=== PATIENT | female | born 1950 | race Hispanic/Latino ===

== ENCOUNTER 2017-11-25 05:57 | Inpatient (IN) | payer BC, MEDICARE ==
[2017-11-15 13:09] VITALS: BMI 39.9
[2017-11-25 06:45] LABS: HEMOGLOBIN 13.7 g/dL (12.0-16.0); MEAN CELL VOLUME 92.5 fl (81.0-99.0); MEAN CORPUSCULAR HEMOGLOBIN 31.4 pg (27.0-31.0); RBC 4.37 Mil/uL (3.80-5.20); RED CELL DISTRIBUTION WIDTH 14.7 % (11.5-14.5); WHITE BLOOD COUNT 6.8 K/uL (4.8-10.8)
--- NOTE | 2017-11-25 07:01 | CP.PCM.HP ---
History of Present Illness - History of Present Illness History of Present Illness: PMD: Aleksander Pereyra MD Chief Complaint: Left knee pain The patient was seen and examined on SDS HPI: This is a 67 years old female with hx of GERD, HTN and osteoarthritis. She has failed conservative treatment for the osteoarthritis of the left knee and has decided to undergo surgical intervention of Left total knee replacement. She refers painful left knee, no nausea, vomits, chest pain, SOB nor Diarrhea. PMH: GERD; HTN; HLD; Osteoarthritis of Left and right Knee; Gastritis PSH: Tonsillectomy; Adenoidectomy SH; Former Smoker; No illegfal drug use; No Alcohol use; Live with her family FH: States: No known family Hx Allergies: Sulfa causes Rash Medications: Reviewed Present on Admission - Present on Admission Any Indicators Present on Admission: No History of DVT/PE: No History of Uncontrolled Diabetes: No Urinary Catheter: No Decubitus Ulcer Present: No Review of Systems - Constitutional Constitutional: absent: Fever, Headache, Lethargy - EENT Eyes: Requires Corrective Lenses. absent: Blurred Vision, Diplopia, Floaters Ears: absent: Decreased Hearing, Tinnitus Nose/Mouth/Throat: absent: Epistaxis, Nasal Congestion, Sinus Pain, Sinus Pressure - Cardiovascular Cardiovascular: Edema. absent: Chest Pain, Dyspnea - Respiratory Respiratory: absent: Cough, Dyspnea, Wheezing, Stridor - Gastrointestinal Gastrointestinal: absent: Abdominal Pain, Constipation, Diarrhea, Nausea, Vomiting - Genitourinary Genitourinary: absent: Dysuria, Flank Pain, Urinary Frequency - Musculoskeletal Musculoskeletal: Arthralgias. absent: Back Pain, Myalgias - Integumentary Integumentary: absent: Rash, Skin Ulcer, Sores, Striae - Neurological Neurological: absent: Confusion, Focal Weakness, Headaches - Psychiatric Psychiatric: absent: Anxiety, Depression, Panic Attacks - Endocrine Endocrine: absent: Palpitations, Polydipsia, Polyphagia, Polyuria - Hematologic/Lymphatic Hematologic: absent: Easy Bleeding, Easy Bruising Past Patient History - Past Medical History & Family History Past Medical History?: Yes - Past Social History Smoking Status: Former Smoker Chewing Tobacco Use: No Cigar Use: No Alcohol: None Drugs: Denies Home Situation {Lives}: With Family - CARDIAC Hx Cardiac Disorders: Yes Hx Hypertension: Yes - PULMONARY Hx Respiratory Disorders: Yes Hx Bronchitis: Yes - NEUROLOGICAL Hx Neurological Disorder: No - HEENT Hx HEENT Problems: Yes Hx Cataracts: Yes - RENAL Hx Chronic Kidney Disease: No - ENDOCRINE/METABOLIC Hx Endocrine Disorders: No - HEMATOLOGICAL/ONCOLOGICAL Hx Blood Disorders: No - INTEGUMENTARY Hx Dermatological Problems: No - MUSCULOSKELETAL/RHEUMATOLOGICAL Hx Musculoskeletal Disorders: Yes Hx Arthritis: Yes (hands,neck,knees) - GASTROINTESTINAL Hx Gastrointestinal Disorders: Yes Hx Gastritis: Yes - GENITOURINARY/GYNECOLOGICAL Hx Genitourinary Disorders: No - PSYCHIATRIC Hx Psychophysiologic Disorder: No - SURGICAL HISTORY Hx Surgeries: Yes Hx Tonsillectomy: Yes (1957) - ANESTHESIA Hx Anesthesia: Yes Hx Anesthesia Reactions: No Has any member of the family had a problem w/ anesthesia?: No Meds Allergies/Adverse Reactions: Allergies Allergy/AdvReac Type Severity Reaction Status Date / Time Sulfa (Sulfonamide Allergy RASH Verified 11/15/17 13:09 Antibiotics) Physical Exam - Constitutional Appears: No Acute Distress - Head Exam Head Exam: ATRAUMATIC, NORMAL INSPECTION, NORMOCEPHALIC - Eye Exam Eye Exam: EOMI, Normal appearance Pupil Exam: NORMAL ACCOMODATION, PERRL - ENT Exam ENT Exam: Mucous Membranes Moist, Normal Exam - Neck Exam Neck exam: Positive for: Full Rom, Normal Inspection. Negative for: Lymphadenopathy, Tenderness - Respiratory Exam Respiratory Exam: Clear to Auscultation Bilateral. absent: Rales, Rhonchi, Wheezes - Cardiovascular Exam Cardiovascular Exam: REGULAR RHYTHM, RRR, +S1, +S2 - GI/Abdominal Exam GI & Abdominal Exam: Normal Bowel Sounds, Soft. absent: Mass, Organomegaly, Tenderness - Rectal Exam Rectal Exam: Deferred - Extremities Exam Additional comments: Non pitting bilateral lower extremity edema - Back Exam Back exam: NORMAL INSPECTION. absent: CVA tenderness (L), CVA tenderness (R) - Neurological Exam Neurological exam: Alert, CN II-XII Intact, Oriented x3, Reflexes Normal - Psychiatric Exam Psychiatric exam: Normal Affect, Normal Mood - Skin Skin Exam: Dry, Intact, Normal Color, Warm Results - Vital Signs Recent Vital Signs: Last Vital Signs Temp 98.5 F 11/25/17 06:41 Pulse 92 H 11/25/17 06:44 Resp 20 11/25/17 06:41 BP 144/74 11/25/17 06:41 Pulse Ox 96 11/25/17 06:41 - Labs Result Diagrams: 11/25/17 06:30 Assessment & Plan - Assessment and Plan (Free Text) Assessment: #.Osteoarthritis #. GERD #. HTN #. HLD Plan: 67 years old female with hx of GERD, HTN and osteoarthritis. She has failed conservative treatment for the osteoarthritis of the left knee and has decided to undergo surgical intervention of Left total knee replacement. She refers painful left knee, no nausea, vomits, chest pain, SOB nor Diarrhea. #. Osteoarthritis of left Knee for Left total Knee replacement - NPO - consult Dr Hughes Orthopedist - Orthopedic management - Pain Management - OT/PT #. GERD - Omeprazole #. HTN - Olmesartan #. HLD - Welchol #. Edema to lower extremities probably secondary to venous insufficiency - Continue Lasix #. DVT prophylaxis with Lovenox to start from 11/26/17 #. Code Status: Full - Date & Time Date: 11/25/17 Time: 07:01
[2017-11-25] MEDS ORDERED: Rocuronium 10 mg/ml (5 ml) ONE (07:21)
[2017-11-25] MEDS ORDERED: Succinylcholine 200 mg/10 ml Inj IV ONE (07:21)
[2017-11-25] MEDS ORDERED: Propofol 10 mg/ml Inj (20 ML) ONE (07:21)
[2017-11-25] MEDS ORDERED: Ropivacaine 0.5% 30ML IV ONE ×2 (07:31→07:58)
[2017-11-25] MEDS ORDERED: Tranexamic Acid 1,000 MG in Sodium Chloride 0.9% 100 ML IVPB ONE ×2 (07:32→07:45)
--- NOTE | 2017-11-25 07:33 | CP.PCM.CON ---
History of Present Illness - History of Present Illness History of Present Illness: Orthopedic consultation Dr. Hughes 67F complains of left knee pain with osteoarthritis failed conservative mgmt and elected for TKR. PMH: HTN, chol, weather induced asthma sx All: sulfa No dysuria, frequency, just finished course of levaquin No hx of bleeding/clotting disorder, seizures, stents, CAD, TIA Review of Systems - Review of Systems All systems: reviewed and no additional remarkable complaints except - Musculoskeletal Musculoskeletal: As Per HPI Past Patient History - Past Medical History & Family History Past Medical History?: Yes Past Family History: Reviewed and not pertinent - Past Social History Smoking Status: Former Smoker - CARDIAC Hx Cardiac Disorders: Yes Hx Hypercholesterolemia: Yes Hx Hypertension: Yes - PULMONARY Hx Respiratory Disorders: Yes Hx Asthma: Yes (sometimes/due to weather) Hx Bronchitis: Yes (due to weather) - NEUROLOGICAL Hx Neurological Disorder: No - HEENT Hx HEENT Problems: Yes Hx Cataracts: Yes - RENAL Hx Chronic Kidney Disease: No - ENDOCRINE/METABOLIC Hx Endocrine Disorders: No - HEMATOLOGICAL/ONCOLOGICAL Hx Blood Disorders: No - INTEGUMENTARY Hx Dermatological Problems: No - MUSCULOSKELETAL/RHEUMATOLOGICAL Hx Musculoskeletal Disorders: Yes Hx Arthritis: Yes (hands,neck,knees) - GASTROINTESTINAL Hx Gastrointestinal Disorders: Yes Hx Gastritis: Yes - GENITOURINARY/GYNECOLOGICAL Hx Genitourinary Disorders: No - PSYCHIATRIC Hx Psychophysiologic Disorder: No - SURGICAL HISTORY Hx Surgeries: Yes Hx Tonsillectomy: Yes (1957) - ANESTHESIA Hx Anesthesia: Yes Hx Anesthesia Reactions: No Has any member of the family had a problem w/ anesthesia?: No Meds Allergies/Adverse Reactions: Allergies Allergy/AdvReac Type Severity Reaction Status Date / Time Sulfa (Sulfonamide Allergy RASH Verified 11/15/17 13:09 Antibiotics) Physical Exam - Constitutional Appears: Well, No Acute Distress - Respiratory Exam Respiratory Exam: NORMAL BREATHING PATTERN - Cardiovascular Exam Additional comments: +dp/pT PULSES - Expanded Lower Extremities Exam Left Knee exam: tenderness (skin intact, calves soft NT neg homans, +DP/PT pulses) - Neurological Exam Neurological exam: Alert, Oriented x3 - Psychiatric Exam Psychiatric exam: Normal Affect, Normal Mood - Skin Skin Exam: Dry, Intact, Normal Color, Warm Results - Vital Signs Recent Vital Signs: Last Vital Signs Temp 98.5 F 11/25/17 06:41 Pulse 92 H 11/25/17 06:44 Resp 20 11/25/17 06:41 BP 144/74 11/25/17 06:41 Pulse Ox 96 11/25/17 06:41 - Labs Result Diagrams: 11/25/17 06:30 Labs: Laboratory Results - last 24 hr 11/25/17 06:30 WBC 6.8 RBC 4.37 Hgb 13.7 Hct 40.4 MCV 92.5 MCH 31.4 H MCHC 34.0 RDW 14.7 H Plt Count 263 Assessment & Plan (1) Primary osteoarthritis of left knee Assessment and Plan: NPO for TKR T&S risks/ralph/alt of TKR explained to patient who verbalized understanding and consented to procedure d/w DR. Hughes, agrees with above Status: Acute (2) Hypertension Assessment and Plan: cont home meds Status: Chronic (3) Hypercholesteremia Status: Chronic
[2017-11-25] MEDS ORDERED: Calcium Chloride 1000 mg/10 ml Syringe IV ONE ×2 (08:05→08:06)
[2017-11-25] MEDS ORDERED: Etomidate 20 mg/10ml Inj IV ONE (08:11)
[2017-11-25] MEDS ORDERED: Lactated Ringer's 1,000 ML IV ONE ×2 (08:15→08:40)
[2017-11-25] MEDS ORDERED: Bacitracin Ointment 30 GM TUBE ONE (08:17)
[2017-11-25] MEDS ORDERED: Absorbable Gelatin Sponge Size 12-7 ONE (08:17)
[2017-11-25] MEDS ORDERED: Thrombin Topical 5,000 Int Units Spray Kit ONE (08:18)
[2017-11-25] MEDS ORDERED: Dexamethasone 4 mg/1 ml ONE (09:49)
[2017-11-25] MEDS ORDERED: Desflurane Inhalation Anesthetic Liq (240 ml) ONE (10:43)
[2017-11-25] MEDS ORDERED: DiphenhydrAMINE 50 mg/ml Inj IVP PRN (12:40)
[2017-11-25] MEDS ORDERED: HYDROmorphone 0.5 mg/0.5 ml ISec IVP PRN (12:40)
[2017-11-25] MEDS ORDERED: oxyCODONE 10 mg Immediate Release Tab PO PRN (12:41)
--- NOTE | 2017-11-25 12:44 | PCM.ANESB3 ---
Femoral Nerve Block - Femoral Nerve Block Date of Procedure: 11/25/17 Anesthesiologist: Eros Gann Pre-Procedure Diagnosis: L total knee replacement Post-Procedure Diagnosis: L total knee replacement Procedure Performed: Femoral Nerve Block Left - Procedure Femoral Nerve Block: The procedure was explained to the patient that it is for the post-operative pain management. Consent was obtained after a thorough discussion with the patient regarding the benefits and possible complications of local anesthetic block of the femoral nerve at the inguinal crease area. The patient was brought to the operating room and standard monitors were applied. Time-out was held with the circulating nurse to confirm the correct surgery and the appropriate block. After completion of the surgical procedure under general anesthesia, patient was placed in supine position with fully extended lower extremities and the left groin exposed. The femoral artery was then carefully palpated. The ultrasound transducer was then applied to this area in the transverse plane and the femoral nerve was visualized lateral to the femoral artery and underneath the fascia iliaca. After thorough identification, the inguinal crease area was prepped with Chlorhexidine. At this point, a #22 gauge Stimuplex 2-inch needle was inserted immediately lateral to the femoral artery pulse at the inguinal crease and advanced perpendicularly. The needle was inserted to the ultrasound transducer in-plane towards the femoral nerve in a [id number] direction. Needle advancement was performed carefully under direct ultrasound visualization. After negative aspiration, 30cc of 0.5% Ropivacaine was injected in 5cc increments. Under ultrasound guidance the local anesthetics were observed spreading below fascia iliaca and around the femoral nerve. The needle was removed intact and sterile dressing was applied. The patient had stable vital signs, was conscious and in no apparent distress. The patient tolerated the femoral nerve block well with stable vital signs and was prepared for subsequent surgery.
[2017-11-25] MEDS ORDERED: Lactated Ringer's 1,000 ML IV SCH ×2 (12:45)
--- NOTE | 2017-11-25 13:33 | RAD ---
Date of service: 11/25/2017 PROCEDURE: Left Knee Radiographs. HISTORY: Pain. COMPARISON: None. FINDINGS: BONES: Patient is status post left knee arthroplasty with distal femoral and proximal tibial prosthetic components in good apparent position grossly. Postop changes seen at the left knee with skin barbi noted anteriorly. No destructive bony lesion identified. No fracture or dislocation identified. No subluxation or dislocation. JOINTS: As above. JOINT EFFUSION: As above. OTHER FINDINGS: None. IMPRESSION: Status post left knee arthroplasty as discussed above.
--- NOTE | 2017-11-25 13:54 | PCM.SURG1 ---
Surgeon's Initial Post Op Note - Surgeon's Notes Surgeon: [employer] Technologist: RICHARD Roman Type of Anesthesia: General Endo, Spinal Anesthesia Administered By: Dr Sanjuanita Jr Pre-Operative Diagnosis: Severe tricompartmental O/A L Knee/. morbid obesity. valgus defomity Operative Findings: Severe tricompartnetal O/A L knee. lateral contracture ( knee). severe synovitis anterior and posterior compartments Post-Operative Diagnosis: as above. posterior capsular contracture. lateral patella retinacular contracture/lateral contracture Operation Performed: L TKR. posterior capsular release. lateral patella release/release popliteus tendon/iliotibial band. anterior and posterior synovectomy. computer navigation Specimen/Specimens Removed: synvoium/cartilage/bone Estimated Blood Loss: EBL {In ML}: 75 Blood Products Given: N/A Drains Used: No Drains Post-Op Condition: Fair Date of Surgery/Procedure: 11/25/17 Time of Surgery/Procedure: 09:45 (time in room [email or web address] indcution time- 830)
--- NOTE | 2017-11-25 17:08 | CP.PCM.CON ---
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 SHE DENIES ANY KNOWN SERIOUS CARDIAC PROBLEMS AND DENIES CHEST PAIN OR SOB. SHE DOES HAVE SINGLE PVCS THAT HER FOUND ON EKGS. SHE HAD AN ECHOCARDIOGRAM THAT SHOWED A LVEF OF 40%. Past Patient History - Past Medical History & Family History Past Medical History?: Yes Past Family History: Reviewed and not pertinent - Past Social History Smoking Status: Former Smoker - CARDIAC Hx Cardiac Disorders: Yes Hx Hypercholesterolemia: Yes Hx Hypertension: Yes - PULMONARY Hx Respiratory Disorders: Yes Hx Asthma: Yes (sometimes/due to weather) Hx Bronchitis: Yes (due to weather) - NEUROLOGICAL Hx Neurological Disorder: No - HEENT Hx HEENT Problems: Yes Hx Cataracts: Yes - RENAL Hx Chronic Kidney Disease: No - ENDOCRINE/METABOLIC Hx Endocrine Disorders: No - HEMATOLOGICAL/ONCOLOGICAL Hx Blood Disorders: No - INTEGUMENTARY Hx Dermatological Problems: No - MUSCULOSKELETAL/RHEUMATOLOGICAL Hx Musculoskeletal Disorders: Yes Hx Arthritis: Yes (hands,neck,knees) - GASTROINTESTINAL Hx Gastrointestinal Disorders: Yes Hx Gastritis: Yes - GENITOURINARY/GYNECOLOGICAL Hx Genitourinary Disorders: No - PSYCHIATRIC Hx Psychophysiologic Disorder: No - SURGICAL HISTORY Hx Surgeries: Yes Hx Tonsillectomy: Yes (1957) - ANESTHESIA Hx Anesthesia: Yes Hx Anesthesia Reactions: No Has any member of the family had a problem w/ anesthesia?: No Meds Allergies/Adverse Reactions: Allergies Allergy/AdvReac Type Severity Reaction Status Date / Time Sulfa (Sulfonamide Allergy RASH Verified 11/15/17 13:09 Antibiotics) - Medications Medications: Current Medications Acetaminophen (Tylenol 325mg Tab) 975 mg PO Q6 HERB Enoxaparin Sodium (Lovenox) 40 mg SC DAILY HERB PRN Reason: Protocol Ferrous Sulfate (Feosol) 325 mg PO BID HERB Folic Acid (Folic Acid) 1 mg PO DAILY [facility] Furosemide (Lasix) 40 mg PO DAILY [facility] Lactated Ringer's (Lactated Ringer's) 1,000 mls @ 150 mls/hr IV .Q6H40M HERB Cefazolin Sodium/Dextrose (Ancef Iv 2 Gm Duplex) 2 gm in 50 mls @ 50 mls/hr IVPB Q8 HERB PRN Reason: Protocol Lactated Ringer's (Lactated Ringer's) 1,000 mls @ 80 mls/hr IV .[id number] [facility] Losartan Potassium (Cozaar) 50 mg PO DAILY [facility] Meperidine HCl (Demerol) 12.5 mg IVP Q5M PRN PRN Reason: Shivering/Rigor Morphine Sulfate (Morphine) 2 mg IVP Q4 PRN PRN Reason: Pain, severe (8-10) Ondansetron HCl (Zofran Inj) 4 mg IVP ONCE PRN PRN Reason: Nausea/Vomiting Oxycodone HCl (Oxycodone Immediate Release Tab) 10 mg PO Q6 PRN PRN Reason: Pain, moderate (4-7) Senna/Docusate Sodium (Senokot S 50 Mg-8.6 Mg) 2 tab PO HS [facility] Spironolactone (Aldactone) 25 mg PO BID [facility] Physical Exam - Respiratory Exam Respiratory Exam: Clear to Auscultation Bilateral - Cardiovascular Exam Cardiovascular Exam: REGULAR RHYTHM, +S1, +S2 - Extremities Exam Additional comments: LLE IN AN IMMOBILIZER RLE WITHOUT EDEMA OR CALF PAIN - Additional Findings Additional findings: EKG NSR Results - Vital Signs Recent Vital Signs: Last Vital Signs Temp 98.2 F 11/25/17 15:00 Pulse 94 H 11/25/17 15:00 Resp 20 11/25/17 15:00 BP 138/82 11/25/17 15:00 Pulse Ox 93 L 11/25/17 14:45 - Labs Result Diagrams: 11/25/17 06:30 Labs: Laboratory Results - last 24 hr 11/25/17 11/25/17 06:30 06:30 WBC 6.8 RBC 4.37 Hgb 13.7 Hct 40.4 MCV 92.5 MCH 31.4 H MCHC 34.0 RDW 14.7 H Plt Count 263 Blood Type A NEGATIVE Antibody Screen Negative Crossmatch See Detail BBK History Checked No verified bt Assessment & Plan - Assessment and Plan (Free Text) Assessment: S/P LEFT TKR FOR SEVERE OA HYPERTENSION SINGLE PVCS ON EKG(BENIGN) Plan: CONTINUE ALDACTONE, LOSARTAN, FUROSEMIDE AND LOVENOX
[2017-11-25] MEDS: ceFAZolin IV 2 gm in Dextrose 2 GM/50 ML BAG IVPB SCH (17:13)
[2017-11-25] MEDS: Docusate-Senna 50 mg-8.6 mg Tab PO SCH (21:07)
--- NOTE | 2017-11-25 23:17 | OP ---
Copied To: Chris Hughes MD Attending MD: Chris Hughes MD PROCEDURE DATE: 11/25/2017 PREOPERATIVE DIAGNOSES: 1. Severe tricompartmental osteoarthritis of the left knee. 2. Anterior and posterior synovitis. 3. Valgus deformity. POSTOPERATIVE DIAGNOSES: 1. Severe tricompartmental osteoarthritis of the left knee. 2. Anterior and posterior compartment synovitis. 3. 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 PROCEDURES: 1. Left total knee replacement arthroplasty. 2. Posterior capsular release. 3. Anterior and posterior synovectomy. 4. Lateral patellar retinacular release and release of lateral corner. 5. Computer navigation. SURGEON: Chris Hughes MD LANDSCAPE CONTRACTOR: Dionna Ca, certified registered nursing events assistant. SECOND ROUND UP RING HAND: Tico Peres. COMPLICATIONS: No complications. DRAINS: No drains. ANESTHESIA: General and regional anesthesia. ANESTHESIOLOGIST: Brian Gann MD OPERATIVE INDICATION: Talia Pereyra is a 67-year-old woman who presents with severe pain and restricted range of motion of the left knee. The patient has failed conservative management including intraarticular injection, activity modification, and therapy. Pros, cons, risks and benefits of surgical approach were discussed. The possibility of mechanical failure, infection, thromboembolic disease, secondary or tertiary surgery was discussed. The patient no longer stand the discomfort. OPERATIVE PROCEDURE: After having obtained informed consent, after having identified side, site and procedure and critical pause/time-out, after the satisfactory induction of the anesthetic, the patient identified as Talia Pereyra in the supine position with all bony prominences well padded, the left lower extremity was prepped and free draped in the usual fashion for extremity surgery. The tourniquet which had been applied after sterilely prepping and draping, after having obtained informed consent, after the satisfactory induction of the anesthesia, the left lower extremity was prepped and free draped in the usual fashion for lower extremity surgery. After exsanguinating the limb using a 6-inch Esmarch bandage, tourniquet which had been applied was inflated to 350 mmHg. After sterilely prepping and draping, approximately an 8-inch straight midline approach was made to the knee. The skin incision was carried down through the skin and subcutaneous tissue. Hemostasis controlled with the Aquamantys. A medial arthrotomy was accomplished. The patella was everted. The knee was flexed. The tibia was dislocated anteriorly, and the initial osteotomy of the arthroplasty was accomplished on the tibial side. The patient has a marked valgus deformity. At this point in time, a lateral patellar retinacular release was accomplished as well as a lateral release including the popliteus tendon. The tibia was dislocated anteriorly, and the initial osteotomy of the arthroplasty was accomplished on the tibial side. At this point in time, computer navigation was employed. The accelerometer technique was employed. This having been accomplished, the anterior tibial strut was placed on the anterior aspect of the tibia. At this point in time, the accelerometer was placed as was the sensor, and registration of the medial malleolus was carried out as well as the lateral malleolus. The offset was identified and defined and registration having been accomplished, registration having been registered, varus-valgus was set to 0 degrees and 3.5 degrees posterior slope at a point approximately 8 mm below the more deficient side. The tibial osteotomy was accomplished. The iliotibial band was released. Lateral structures were released. A lateral patellar retinacular release was accomplished. The tibial osteotomy having been accomplished, attention was turned to the femur. Notch osteophytes and border osteophytes were debrided and this having been accomplished, notch osteophytes and border osteophytes having been debrided. The guide pin was placed in the superior aspect of the intercondylar notch. This having been accomplished, the distal cutting guide was affixed. Verification of position was accomplished. Sensor was applied as well as the accelerometer. Hip center was registered and the distal femoral cut was set to 0 degrees varus-valgus and 0.5 degrees of flexion. This having been accomplished, the cut was set to 9 mm distally. The distal cut having been accomplished, anterior-posterior sizing was accomplished to a #5 femoral component. A #5 block was applied. Anterior and posterior osteotomies were accomplished as well as chamfer cuts. This having been accomplished, the flexion-extension gap was measured and found to be equal. Posterior capsule was released because of the posterior capsular contracture using the electrocautery. This having been accomplished, the femoral trial was placed. The lugs were drilled. The tibia was dislocated anteriorly. At this point in time, the proximal tibia was prepared, guided to rotation of the lateral aspect of the tibial condyle, mid malleolar axis and medial third of the tibial tuberosity. This having been accomplished, the proximal tibia having been prepared with a stem extension, the tibial plate was applied with a 20-mm polyethylene. The flexion/extension was found to be excellent and stable. Overall alignment was excellent. The patella was exposed. Patella girth was found to be approximately 28 mm. Freehand patella osteotomy was accomplished, and the patella was reamed for #2 patellar component. The chamfer guide was placed after the trial had been removed, and the chamfer to the distal femur was accomplished. This having been accomplished, trialling having been accomplished and flexion/extension gap having been found to be equal and balanced, the patella balance having been equal, the femur, tibia and patella were prepared. The #5 cemented femoral component, #4 cemented tibial tray, #2 patella were cemented. Flexion/extension gap was found to be excellent. The tourniquet was deflated. Hemostasis was controlled with the Aquamantys. Closure was in layers, #2 FiberWire followed by #1 Vicryl, #2 Quill, 2-0 Vicryl, and barbi for skin. A Rajan Macdonald compression dressing and knee immobilizers were applied. Postoperative x-rays reveal excellent position of the construct. Chris Hughes MD
[2017-11-26] MEDS: ceFAZolin IV 2 gm in Dextrose 2 GM/50 ML BAG IVPB SCH ×2 (00:20→09:40)
[2017-11-26 06:27] LABS: HEMOGLOBIN 11.3 g/dL (12.0-16.0); MEAN CELL VOLUME 92.6 fl (81.0-99.0); MEAN CORPUSCULAR HEMOGLOBIN 31.2 pg (27.0-31.0); MEAN CORPUSCULAR HGB CONC 33.7 g/dL (33.0-37.0); RBC 3.62 Mil/uL (3.80-5.20); RED CELL DISTRIBUTION WIDTH 14.5 % (11.5-14.5); WHITE BLOOD COUNT 9.4 K/uL (4.8-10.8)
[2017-11-26 06:33] LABS: BLOOD UREA NITROGEN 14 mg/dl (7-17); CALCIUM 8.8 mg/dL (8.4-10.2); GFR AFRICAN-AMERICAN > 60; GFR NON-AFRICAN AMERICAN > 60
--- NOTE | 2017-11-26 08:13 | CP.PCM.PN ---
Subjective - Date & Time of Evaluation Date of Evaluation: 11/26/17 Time of Evaluation: 07:20 - Subjective Subjective: Patient seen and examined at bedside comfortable. No complaints of pain this AM. Eager to get OOB with PT. No acute events overnight. Denies CP/SOB/ dizziness. Objective - Vital Signs/Intake and Output Vital Signs (last 24 hours): Temp Pulse Resp BP Pulse Ox 98.4 F 92 H 18 119/75 96 11/26/17 03:45 11/26/17 03:45 11/26/17 03:45 11/26/17 03:45 11/26/17 03:45 - Medications Medications: Current Medications Acetaminophen (Tylenol 325mg Tab) 975 mg PO Q6 [facility] Last Admin: 11/25/17 21:06 Dose: 975 mg Enoxaparin Sodium (Lovenox) 40 mg SC DAILY [facility] PRN Reason: Protocol Ferrous Sulfate (Feosol) 325 mg PO BID [facility] Last Admin: 11/25/17 17:11 Dose: Not Given Folic Acid (Folic Acid) 1 mg PO DAILY [facility] Furosemide (Lasix) 40 mg PO DAILY [facility] Lactated Ringer's (Lactated Ringer's) 1,000 mls @ 150 mls/hr IV .Q6H40M [facility] Cefazolin Sodium/Dextrose (Ancef Iv 2 Gm Duplex) 2 gm in 50 mls @ 50 mls/hr IVPB Q8 [facility] PRN Reason: Protocol Last Admin: 11/26/17 00:20 Dose: 50 mls/hr Lactated Ringer's (Lactated Ringer's) 1,000 mls @ 80 mls/hr IV .[id number] [facility] Losartan Potassium (Cozaar) 50 mg PO DAILY [facility] Meperidine HCl (Demerol) 12.5 mg IVP Q5M PRN PRN Reason: Shivering/Rigor Morphine Sulfate (Morphine) 2 mg IVP Q4 PRN PRN Reason: Pain, severe (8-10) Ondansetron HCl (Zofran Inj) 4 mg IVP ONCE PRN PRN Reason: Nausea/Vomiting Oxycodone HCl (Oxycodone Immediate Release Tab) 10 mg PO Q6 PRN PRN Reason: Pain, moderate (4-7) Senna/Docusate Sodium (Senokot S 50 Mg-8.6 Mg) 2 tab PO HS [facility] Last Admin: 11/25/17 21:07 Dose: Not Given Spironolactone (Aldactone) 25 mg PO BID [facility] Last Admin: 11/25/17 17:10 Dose: 25 mg - Labs Labs: 11/26/17 05:25 11/26/17 05:25 - Extremities Exam Additional comments: L knee: Dressings CDI, Knee imm intact sensation intact SP/DP/TN motor intact EHL/FHL/TA/G pedal pulses intact comps soft NT Assessment and Plan (1) Primary osteoarthritis of left knee Assessment & Plan: POD #1 s/p L TKA doing very well -PT/OT FWB -knee imm only a night while in bed -CPM as per order -complete postop abx dosage -DVT ppx -hep lock -dsicharge planning to home tomorrow -above d/w Dr. Hughes in agreement Status: Acute
--- NOTE | 2017-11-26 09:09 | CP.PCM.PN ---
Subjective - Date & Time of Evaluation Date of Evaluation: 11/26/17 Time of Evaluation: 08:00 - Subjective Subjective: NO COMPLAINTS EXCEPT FOR SURGICAL SITE PAIN Objective - Vital Signs/Intake and Output Vital Signs (last 24 hours): Temp Pulse Resp BP Pulse Ox 98.1 F 76 20 118/72 95 11/26/17 08:12 11/26/17 08:12 11/26/17 08:12 11/26/17 08:12 11/26/17 08:12 - Medications Medications: Current Medications Acetaminophen (Tylenol 325mg Tab) 975 mg PO Q6 [facility] Last Admin: 11/25/17 21:06 Dose: 975 mg Enoxaparin Sodium (Lovenox) 40 mg SC DAILY [facility] PRN Reason: Protocol Ferrous Sulfate (Feosol) 325 mg PO BID [facility] Last Admin: 11/25/17 17:11 Dose: Not Given Folic Acid (Folic Acid) 1 mg PO DAILY [facility] Furosemide (Lasix) 40 mg PO DAILY [facility] Lactated Ringer's (Lactated Ringer's) 1,000 mls @ 150 mls/hr IV .Q6H40M [facility] Cefazolin Sodium/Dextrose (Ancef Iv 2 Gm Duplex) 2 gm in 50 mls @ 50 mls/hr IVPB Q8 [facility] PRN Reason: Protocol Last Admin: 11/26/17 00:20 Dose: 50 mls/hr Lactated Ringer's (Lactated Ringer's) 1,000 mls @ 80 mls/hr IV .[id number] [facility] Losartan Potassium (Cozaar) 50 mg PO DAILY [facility] Meperidine HCl (Demerol) 12.5 mg IVP Q5M PRN PRN Reason: Shivering/Rigor Morphine Sulfate (Morphine) 2 mg IVP Q4 PRN PRN Reason: Pain, severe (8-10) Ondansetron HCl (Zofran Inj) 4 mg IVP ONCE PRN PRN Reason: Nausea/Vomiting Oxycodone HCl (Oxycodone Immediate Release Tab) 10 mg PO Q6 PRN PRN Reason: Pain, moderate (4-7) Senna/Docusate Sodium (Senokot S 50 Mg-8.6 Mg) 2 tab PO HS [facility] Last Admin: 11/25/17 21:07 Dose: Not Given Spironolactone (Aldactone) 25 mg PO BID [facility] Last Admin: 11/25/17 17:10 Dose: 25 mg - Labs Labs: 11/26/17 05:25 11/26/17 05:25 - Respiratory Exam Respiratory Exam: Clear to Ausculation Bilateral - Cardiovascular Exam Cardiovascular Exam: REGULAR RHYTHM, +S1, +S2 - Extremities Exam Additional comments: LLE IN IMMOBILIZER RLE WITHOUT CALF TENDERNESS Assessment and Plan - Assessment and Plan (Free Text) Assessment: S/P LEFT TKR HYPERTENSION Plan: CONTINUE ALDACTONE, LOSARTAN, FUROSEMIDE, LOVENOX AND ANTIBIOTICS
[2017-11-26] MEDS: Enoxaparin 40 mg Syringe SC SCH (09:41)
--- NOTE | 2017-11-26 16:45 | CP.PCM.PN ---
Subjective - Date & Time of Evaluation Date of Evaluation: 11/26/17 Time of Evaluation: 10:30 - Subjective Subjective: Patient seen and examined . Sitting in chair in NAD.Hemodynamically stable, afebrile .Feels pressure and muscle cramps to LLE. Denies any chest pain or SOB Voiding well and tolearating PO intake Participating with PT Objective - Vital Signs/Intake and Output Vital Signs (last 24 hours): Temp Pulse Resp BP Pulse Ox 98.6 F 93 H 20 118/70 95 11/26/17 16:04 11/26/17 16:04 11/26/17 16:04 11/26/17 16:04 11/26/17 16:04 - Medications Medications: Current Medications Acetaminophen (Tylenol 325mg Tab) 975 mg PO Q6 [facility] Last Admin: 11/26/17 09:05 Dose: 975 mg Enoxaparin Sodium (Lovenox) 40 mg SC DAILY [facility] PRN Reason: Protocol Last Admin: 11/26/17 09:41 Dose: 40 mg Ferrous Sulfate (Feosol) 325 mg PO BID [facility] Last Admin: 11/26/17 16:16 Dose: Not Given Folic Acid (Folic Acid) 1 mg PO DAILY [facility] Last Admin: 11/26/17 09:06 Dose: 1 mg Furosemide (Lasix) 40 mg PO DAILY [facility] Last Admin: 11/26/17 09:07 Dose: 40 mg Lactated Ringer's (Lactated Ringer's) 1,000 mls @ 150 mls/hr IV .Q6H40M [facility] Lactated Ringer's (Lactated Ringer's) 1,000 mls @ 80 mls/hr IV .[id number] [facility] Losartan Potassium (Cozaar) 50 mg PO DAILY [facility] Last Admin: 11/26/17 09:06 Dose: 50 mg Morphine Sulfate (Morphine) 2 mg IVP Q4 PRN PRN Reason: Pain, severe (8-10) Ondansetron HCl (Zofran Inj) 4 mg IVP ONCE PRN PRN Reason: Nausea/Vomiting Senna/Docusate Sodium (Senokot S 50 Mg-8.6 Mg) 2 tab PO HS [facility] Last Admin: 11/25/17 21:07 Dose: Not Given Spironolactone (Aldactone) 25 mg PO BID [facility] Last Admin: 11/26/17 09:06 Dose: 25 mg Tramadol HCl (Ultram) 50 mg PO Q4 PRN PRN Reason: Pain, moderate (4-7) Last Admin: 11/26/17 13:41 Dose: 50 mg - Labs Labs: 11/26/17 05:25 11/26/17 05:25 - Constitutional Appears: Non-toxic, No Acute Distress, Other (overweight) - Head Exam Head Exam: ATRAUMATIC, NORMAL INSPECTION, NORMOCEPHALIC - Eye Exam Eye Exam: EOMI, Normal appearance, PERRL Pupil Exam: NORMAL ACCOMODATION - ENT Exam ENT Exam: Mucous Membranes Moist, Normal Exam - Neck Exam Neck Exam: Full ROM, Normal Inspection - Respiratory Exam Respiratory Exam: Clear to Ausculation Bilateral, NORMAL BREATHING PATTERN. absent: Rales, Rhonchi, Wheezes, Respiratory Distress - Cardiovascular Exam Cardiovascular Exam: REGULAR RHYTHM, RRR, +S1, +S2. absent: JVD - GI/Abdominal Exam GI & Abdominal Exam: Soft, Normal Bowel Sounds. absent: Distended, Guarding, Tenderness, Rebound - Rectal Exam Rectal Exam: Deferred - Extremities Exam Extremities Exam: Normal Capillary Refill. absent: Calf Tenderness, Pedal Edema Additional comments: left knee dressing in place - Back Exam Back Exam: NORMAL INSPECTION - Neurological Exam Neurological Exam: Alert, Awake, CN II-XII Intact, Oriented x3 - Psychiatric Exam Psychiatric exam: Normal Affect - Skin Skin Exam: Dry, Normal Color, Warm Assessment and Plan - Assessment and Plan (Free Text) Assessment: 67 years old female with hx of GERD, HTN and osteoarthritis, failing conservative treatment for the osteoarthritis of the left knee presented for Left total knee replacement. She refers painful left knee, no nausea, vomits, chest pain, SOB nor Diarrhea. Today post op day 1 , feeling well. 1. Primary Osteoarthritis of left Knee s/p left TKR ortho on consult following Pain is controlled Continue Morphine and Ultram PRN Incentive spirometry Started PT and tolerating well CMP machine as per ortho DVt prophylaxis 2.GERD on Omeprazole 3. HTN controlled on losartan and aldactone 4. HLD on Welchol 5. History of anemia possible iron deficiency anemia and acute blood loss anemia this admission Hgb dropped from 13 --11 on ferrous sulfate and folic acid 6. Obesity BMP 39.9 7.Edema to lower extremities probably secondary to venous insufficiency Continue Lasix 8. Vitamin D deficiency start vitamin D pO 9. DVT prophylaxis Lovenox
[2017-11-26 21:11] LABS: SQUAMOUS EPITHIAL < 1 /hpf (0-5); URINE BILIRUBIN NEGATIVE (NEGATIVE); URINE BLOOD MODERATE (NEGATIVE); URINE CLARITY CLEAR (Clear); URINE COLOR YELLOW (YELLOW); URINE GLUCOSE (UA) NEG (Normal); URINE LEUKOCYTE ESTERASE NEG Leu/uL (Negative); URINE PROTEIN NEGATIVE (NEGATIVE); URINE UROBILINOGEN 0.2-1.0 mg/dL (0.2-1.0)
[2017-11-26] MEDS: Docusate-Senna 50 mg-8.6 mg Tab PO SCH (21:39)
[2017-11-26 23:44] VITALS: RESP 18
[2017-11-27 06:26] LABS: HEMOGLOBIN 11.1 g/dL (12.0-16.0); MEAN CELL VOLUME 92.5 fl (81.0-99.0); MEAN CORPUSCULAR HEMOGLOBIN 31.4 pg (27.0-31.0); MEAN CORPUSCULAR HGB CONC 33.9 g/dL (33.0-37.0); RBC 3.53 Mil/uL (3.80-5.20); RED CELL DISTRIBUTION WIDTH 14.3 % (11.5-14.5); WHITE BLOOD COUNT 10.2 K/uL (4.8-10.8)
[2017-11-27 07:00] LABS: BLOOD UREA NITROGEN 13 mg/dl (7-17); CALCIUM 8.7 mg/dL (8.4-10.2); GFR AFRICAN-AMERICAN > 60; GFR NON-AFRICAN AMERICAN > 60
--- NOTE | 2017-11-27 08:13 | CP.PCM.PN ---
Subjective - Date & Time of Evaluation Date of Evaluation: 11/27/17 Time of Evaluation: 07:30 - Subjective Subjective: Patient seen and examined at bedside comfortable. C/o soreness of thigh and leg due to the CPM and PT yesterday, otherwise pain well controlled. No other complaints. Denies CP/SOB/dizziness. Objective - Vital Signs/Intake and Output Vital Signs (last 24 hours): Temp Pulse Resp BP Pulse Ox 98.2 F 88 18 107/62 96 11/26/17 23:43 11/26/17 23:43 11/26/17 23:43 11/26/17 23:43 11/26/17 23:43 - Medications Medications: Current Medications Acetaminophen (Tylenol 325mg Tab) 975 mg PO Q6 [facility] Last Admin: 11/27/17 04:00 Dose: Not Given Enoxaparin Sodium (Lovenox) 40 mg SC DAILY [facility] PRN Reason: Protocol Last Admin: 11/26/17 09:41 Dose: 40 mg Ferrous Sulfate (Feosol) 325 mg PO BID [facility] Last Admin: 11/26/17 16:16 Dose: Not Given Folic Acid (Folic Acid) 1 mg PO DAILY [facility] Last Admin: 11/26/17 09:06 Dose: 1 mg Furosemide (Lasix) 40 mg PO DAILY [facility] Last Admin: 11/26/17 09:07 Dose: 40 mg Losartan Potassium (Cozaar) 50 mg PO DAILY [facility] Last Admin: 11/26/17 09:06 Dose: 50 mg Morphine Sulfate (Morphine) 2 mg IVP Q4 PRN PRN Reason: Pain, severe (8-10) Ondansetron HCl (Zofran Inj) 4 mg IVP ONCE PRN PRN Reason: Nausea/Vomiting Senna/Docusate Sodium (Senokot S 50 Mg-8.6 Mg) 2 tab PO HS [facility] Last Admin: 11/26/17 21:39 Dose: Not Given Spironolactone (Aldactone) 25 mg PO BID [facility] Last Admin: 11/26/17 17:01 Dose: 25 mg Tramadol HCl (Ultram) 50 mg PO Q4 PRN PRN Reason: Pain, moderate (4-7) Last Admin: 11/27/17 06:21 Dose: 50 mg - Labs Labs: 11/27/17 05:30 11/27/17 05:30 - Extremities Exam Additional comments: L knee: Dressings CDI, Knee imm intact sensation intact SP/DP/TN motor intact EHL/FHL/TA/G pedal pulses intact comps soft NT Assessment and Plan (1) Primary osteoarthritis of left knee Assessment & Plan: POD #2 s/p L TKA doing very well -Dressings changed to dry dressings -PT/OT FWB -CPM and knee imm as per order -DVT ppx -dsicharge to home today with home services -f/u in office within 2 weeks -above d/w Dr. Hughes in agreement Status: Acute
[2017-11-27 08:24] VITALS: BP 110/68; PULSE 94; TEMP 98.9
[2017-11-27] MEDS ORDERED: Povidone Iodine Topical 10% Sol ONE (08:34)
--- NOTE | 2017-11-27 08:54 | CP.PCM.PN ---
Subjective - Date & Time of Evaluation Date of Evaluation: 11/27/17 Time of Evaluation: 08:15 - Subjective Subjective: NO CHEST PAIN OR SOB JUST COMPLAINS OF PAIN AT SURGICAL SITE Objective - Vital Signs/Intake and Output Vital Signs (last 24 hours): Temp Pulse Resp BP Pulse Ox 98.9 F 94 H 18 110/68 92 L 11/27/17 08:24 11/27/17 08:24 11/27/17 08:24 11/27/17 08:24 11/27/17 08:24 - Medications Medications: Current Medications Acetaminophen (Tylenol 325mg Tab) 975 mg PO Q6 [facility] Last Admin: 11/27/17 04:00 Dose: Not Given Enoxaparin Sodium (Lovenox) 40 mg SC DAILY [facility] PRN Reason: Protocol Last Admin: 11/26/17 09:41 Dose: 40 mg Ferrous Sulfate (Feosol) 325 mg PO BID [facility] Last Admin: 11/26/17 16:16 Dose: Not Given Folic Acid (Folic Acid) 1 mg PO DAILY [facility] Last Admin: 11/26/17 09:06 Dose: 1 mg Furosemide (Lasix) 40 mg PO DAILY [facility] Last Admin: 11/26/17 09:07 Dose: 40 mg Losartan Potassium (Cozaar) 50 mg PO DAILY [facility] Last Admin: 11/26/17 09:06 Dose: 50 mg Morphine Sulfate (Morphine) 2 mg IVP Q4 PRN PRN Reason: Pain, severe (8-10) Ondansetron HCl (Zofran Inj) 4 mg IVP ONCE PRN PRN Reason: Nausea/Vomiting Senna/Docusate Sodium (Senokot S 50 Mg-8.6 Mg) 2 tab PO HS [facility] Last Admin: 11/26/17 21:39 Dose: Not Given Spironolactone (Aldactone) 25 mg PO BID [facility] Last Admin: 11/26/17 17:01 Dose: 25 mg Tramadol HCl (Ultram) 50 mg PO Q4 PRN PRN Reason: Pain, moderate (4-7) Last Admin: 11/27/17 06:21 Dose: 50 mg - Labs Labs: 11/27/17 05:30 11/27/17 05:30 - Respiratory Exam Respiratory Exam: Clear to Ausculation Bilateral - Cardiovascular Exam Cardiovascular Exam: REGULAR RHYTHM, +S1, +S2 - Extremities Exam Additional comments: LLE WITH DRESSINGS AND QUYNH BANDAGE - Additional Findings Additional findings: 11.1/32.6 K+ 4.5 Assessment and Plan - Assessment and Plan (Free Text) Assessment: LEFT TKR HYPERTENSION Plan: FOR PROBABLE DISCHARGE TO HOME TODAY
[2017-11-27] MEDS ORDERED: oxyCODONE 5 mg Immediate Release Tab PO PRN (10:00)
[2017-11-27] MEDS ORDERED: oxyCODONE 10 mg Immediate Release Tab PO PRN (10:00)
[2017-11-27 10:06] VITALS: O2SAT 98
[2017-11-27] MEDS: Enoxaparin 40 mg Syringe SC SCH (10:09)
--- NOTE | 2017-11-27 17:06 | CP.PCM.DIS ---
Provider - Provider Date of Admission: 11/25/17 08:59 Attending physician: Rigoberto Delgado Primary care physician: PMD: Aleksander Pereyra MD Consults: Dr. Das, orthopedic Dr. Stewart, cardiology Time Spent in preparation of Discharge (in minutes): 15 Hospital Course - Lab Results Lab Results: Most Recent Lab Values WBC 10.2 K/uL (4.8-10.8) 11/27/17 05:30 RBC 3.53 Mil/uL (3.80-5.20) L 11/27/17 05:30 Hgb 11.1 g/dL (12.0-16.0) L 11/27/17 05:30 Hct 32.6 % (34.0-47.0) L 11/27/17 05:30 MCV 92.5 fl (81.0-99.0) 11/27/17 05:30 MCH 31.4 pg (27.0-31.0) H 11/27/17 05:30 MCHC 33.9 g/dL (33.0-37.0) 11/27/17 05:30 RDW 14.3 % (11.5-14.5) 11/27/17 05:30 Plt Count 178 K/uL (130-400) 11/27/17 05:30 Sodium 136 mmol/l (132-148) 11/27/17 05:30 Potassium 4.5 MMOL/L (3.6-5.0) 11/27/17 05:30 Chloride 104 mmol/L (98-107) 11/27/17 05:30 Carbon Dioxide 28 mmol/L (22-30) 11/27/17 05:30 Anion Gap 9 (10-20) L 11/27/17 05:30 BUN 13 mg/dl (7-17) 11/27/17 05:30 Creatinine 0.8 mg/dl (0.7-1.2) 11/27/17 05:30 Est GFR ( Amer) > 60 11/27/17 05:30 Est GFR (Non-Af Amer) > 60 11/27/17 05:30 Random Glucose 102 mg/dL (65-105) 11/27/17 05:30 Calcium 8.7 mg/dL (8.4-10.2) 08/22/18 05:30 25-OH Vitamin D Total 28.8 NG/ML (30.0-100.0) L 11/26/17 06:15 Urine Color Yellow (YELLOW) 11/26/17 21:03 Urine Clarity Clear (Clear) 11/26/17 21:03 Urine pH 5.0 (5.0-8.0) 11/26/17 21:03 Ur Specific Angela 1.020 (1.003-1.030) 11/26/17 21:03 Urine Protein Negative mg/dL (NEGATIVE) 11/26/17 21:03 Urine Glucose (UA) Neg mg/dL (Normal) 11/26/17 21: Urine Ketones Negative mg/dL (NEGATIVE) 11/26/17 21:03 Urine Blood Moderate (NEGATIVE) 11/26/17 21: Urine Nitrate Negative (NEGATIVE) 11/26/17 21: Urine Bilirubin Negative (NEGATIVE) 11/26/17 21:03 Urine Urobilinogen 0.2-1.0 mg/dL (0.2-1.0) 11/26/17 21:03 Ur Leukocyte Esterase Neg Joel/uL (Negative) 11/26/17 21:03 Urine RBC (Auto) 10 /hpf (0-3) H 11/26/17 21:03 Urine Microscopic WBC 1 /hpf (0-5) 11/26/17 21:03 Ur Squamous Epith Cells < 1 /hpf (0-5) 11/26/17 21:03 Blood Type A NEGATIVE 11/25/17 06:30 Antibody Screen Negative 11/25/17 06:30 Crossmatch See Detail 11/25/17 06:30 BBK History Checked No verified bt 11/25/17 06:30 - Hospital Course Hospital Course: 67 years old female with hx of GERD, HTN and osteoarthritis, failing conservative treatment for the osteoarthritis of the left knee presented for Left total knee replacement. She refers painful left knee, no nausea, vomits, chest pain, SOB nor Diarrhea. She underwent a left TKR on 11/25/[address] Das successfully. Tolerating PT well. Being discharged today in stable condition and will f/u with Dr. Das as per his appointment. Today post op day 2 , feeling well. 1. Primary Osteoarthritis of left Knee s/p left TKR ortho on consult following- stable for discharge today Pain is controlled Continue Morphine and Ultram PRN Incentive spirometry Started PT and tolerating well CMP machine as per ortho 2.GERD on Omeprazole 3. HTN controlled on losartan and aldactone 4. HLD on Welchol 5. History of anemia possible iron deficiency anemia and acute blood loss anemia this admission Hgb dropped from 13 --11 on ferrous sulfate and folic acid 6. Obesity BMP 39.9 7.Edema to lower extremities probably secondary to venous insufficiency Continue Lasix 8. Vitamin D deficiency start vitamin D pO 9. DVT prophylaxis ASA 81 mg po BID as outpatient Discharge Exam - Head Exam Head Exam: ATRAUMATIC, NORMAL INSPECTION, NORMOCEPHALIC - Additional Findings Additional findings: Physical exam: Constitutional- cooperative, awake, alert Head- NCAT, PERRL Eye- PERRL, EOMI ENT- normal exam, MMM. Neck- normal inspection, supple, no JVD Respiratory- CTAB, no wheezes rales rhonchi Cardiovascular- RRR, +S1, +S2 no MRG GI/Abdominal- normal bowel sounds, soft, no mass, no hsm Skin- warm, dry Extremities Exam- limited ROM of leg leg. normal capillary refill, normal inspection Neurological Exam- alert, awake, oriented Psych- normal mood, normal affect Discharge Plan - Discharge Medications Prescriptions: Aspirin [Adult Aspirin Regimen] 81 mg PO BID #60 tablet. Docusate Sodium/Sennosides A [Senokot S 50 MG-8.6 MG] 2 tab PO HS PRN #10 tab PRN Reason: Constipation Ferrous Sulfate [Feosol] 325 mg PO BID #60 tab Folic Acid 1 mg PO DAILY #30 tab oxyCODONE [oxyCODONE Immediate Release Tab] 5 mg PO Q4 PRN #20 tab PRN Reason: Pain, Moderate (4-7) - Follow Up Plan Condition: GOOD Disposition: HOME/ ROUTINE Instructions: Total Knee Replacement (DC) Additional Instructions: follow up with dr ads as indicated. Referrals: Chris Das III, MD [Primary Care Provider] -
== END 2017-11-27 16:00 | disposition home or self-care (01) | DRG 470 ==
LOC: H.OPSURG 05:57 → H.MEDSURG1 08:59
PROVIDERS: ADMIT Internal Medicine; ATTEND Internal Medicine
PROC: 0SBD0ZZ Excision of Left Knee Joint, Open Approach (ICD-10-PCS; 2017-11-25)
PROC: 8E0YXBZ Computer Assisted Procedure of Lower Extremity (ICD-10-PCS; 2017-11-25)
PROC: 3E0T3BZ Introduction of Anesthetic Agent into Peripheral Nerves and Plexi, Percutaneous Approach (ICD-10-PCS; 2017-11-25)
PROC: 0SRD0J9 Replacement of Left Knee Joint with Synthetic Substitute, Cemented, Open Approach (ICD-10-PCS; principal; 2017-11-25 07:45)
PROC: 0SND0ZZ Release Left Knee Joint, Open Approach (ICD-10-PCS; 2017-11-25 07:45)
DX: M17.12 Unilateral primary osteoarthritis, left knee (principal); D62 Acute posthemorrhagic anemia; K21.9 Gastro-esophageal reflux disease without esophagitis; I10 Essential (primary) hypertension; Z87.891 Personal history of nicotine dependence; K29.70 Gastritis, unspecified, without bleeding; E78.5 Hyperlipidemia, unspecified; Z88.2 Allergy status to sulfonamides; I87.2 Venous insufficiency (chronic) (peripheral); E78.00 Pure hypercholesterolemia, unspecified; I49.3 Ventricular premature depolarization; E66.01 Morbid (severe) obesity due to excess calories; Z68.39 Body mass index [BMI] 39.0-39.9, adult; M21.062 Valgus deformity, not elsewhere classified, left knee; M65.9 Synovitis and tenosynovitis, unspecified; M24.562 Contracture, left knee; E55.9 Vitamin D deficiency, unspecified; D50.9 Iron deficiency anemia, unspecified